=== PATIENT | male | born 1970 | race Caucasian/White ===

== ENCOUNTER 2018-02-15 17:11 | Inpatient (IN) | payer MEDICAID ==
[~2018-02-15] VITALS: Ht 185.4 cm; Wt 135.6 kg
--- NOTE | 2018-02-15 17:15 | NUR ---
BIB FAMILY C/O CHEST PAIN RADIATES TO L ARM X 1 WEEK. A/OX 4. BREATHING EVEN AND UNLABORED AT THIS TIME. NO SOB, NAD, VITALS STABLE. SAFETY AND COMFORT MEASURES IN PLACE. AWAITING MD ORDERS.
--- NOTE | 2018-02-15 17:32 | NUR ---
NEW IV STARTED ON LEFT HAND, 20G. BLOOD DRAWN AND SENT TO LAB.
--- NOTE | 2018-02-15 17:46 | NUR ---
BREAKER UP MACHINE OPERATOR AT BEDSIDE.
[2018-02-15] MEDS ORDERED: ASPIRIN 325 MG TABLET PO ONE (18:00)
[2018-02-15] MEDS ORDERED: NITROGLYCERIN PACKET 1 GM PACKET TD ONE (18:00)
[2018-02-15] MEDS ORDERED: NITROGLYCERIN PACKET 1 GM PACKET ONE (18:01)
[2018-02-15] MEDS ORDERED: ASPIRIN 325 MG TABLET ONE (18:01)
[2018-02-15 18:04] LABS: INR 0.88 (0.85-1.15)
[2018-02-15 18:07] LABS: TROPONIN I < 0.017 ng/mL (0.00-0.056)
[2018-02-15 18:32] LABS: CALCIUM, SERUM 8.9 mg/dL (8.5-10.1); CARBON DIOXIDE 26 mmol/L (21-32); CHLORIDE 102 mmol/L (98-107); GLUCOSE 146 mg/dL (74-106); SODIUM SERUM 137 mmol/L (136-145); UREA NITROGEN, BLOOD 14 mg/dL (7-18)
[2018-02-15 18:46] LABS: ALANINE AMINOTRANSFERASE 52 U/L (12-78); ALBUMIN 3.7 g/dL (3.4-5.0); ALKALINE PHOSPHATASE 84 U/L (46-116); ASPARTATE AMINOTRANSFERASE 19 U/L (15-37); B-TYPE NATRIURETIC PEPTIDE 15 PG/ML (0-125); BILIRUBIN,DIRECT 0.1 mg/dL (0.0-0.2); BILIRUBIN,TOTAL 0.4 mg/dL (0.2-1.0); TOTAL PROTEIN, SERUM 7.7 g/dL (6.4-8.2)
[2018-02-15 18:48] LABS: BASOPHILS % (AUTO) 0.5 % (0.0-2.0); HEMATOCRIT 44 % (39-51); HEMOGLOBIN 14.9 g/dL (13.5-17.5); LYMPHOCYTES # (AUTO) 2.8 /CMM (0.8-4.8); LYMPHOCYTES % (AUTO) 28.2 % (20.0-44.0); MEAN CORPUSCULAR HGB CONC 34 g/dl (31.0-36.0); MEAN CORPUSCULAR VOLUME 87 fL (80-96); MONOCYTES # (AUTO) 0.8 /CMM (0.1-1.30); MONOCYTES % (AUTO) 8.1 % (2.0-12.0); NEUTROPHILS # (AUTO) 5.9 /CMM (1.8-8.9); NEUTROPHILS % (AUTO) 59.2 % (43.0-81.0); PLATELET COUNT (AUTO) 209 /CMM (150-450); RED BLOOD CELL COUNT(AUTO) 5.09 MIL/uL (4.5-6.0); WHITE BLOOD COUNT (AUTO) 9.9 K/uL (4.3-11.0)
[2018-02-15] MEDS ORDERED: MORPHINE SULFATE INJ 2 MG/ML DISP.SYRIN IV ONE (19:30)
[2018-02-15] MEDS ORDERED: MORPHINE SULFATE INJ 4 MG/ML DISP.SYRIN ONE (19:34)
[2018-02-15 20:00] VITALS: BP 159/119
[2018-02-15] MEDS ORDERED: ACETAMINOPHEN 325 MG TABLET PO PRN (20:00)
[2018-02-15] MEDS ORDERED: MAG HYDROX/AL HYDROX/SIMETH 30 ML UDC PO PRN (20:00)
[2018-02-15] MEDS ORDERED: MAGNESIUM HYDROXIDE 30 ML UDC PO PRN (20:00)
[2018-02-15] MEDS ORDERED: ZOLPIDEM TARTRATE 5 MG TABLET PO PRN (20:00)
[2018-02-15] MEDS ORDERED: ONDANSETRON HCL/PF 4 MG/2 ML VIAL IVP PRN (20:00)
[2018-02-15] MEDS ORDERED: NITROGLYCERIN 0.4 MG/TAB BOTTLE SL PRN (20:00)
[2018-02-15] MEDS ORDERED: Z GUARD REMEDY 2 OZ OINT TP PRN (20:00)
[2018-02-15] MEDS ORDERED: HYDROCODONE/APAP 5/325MG 1 EACH TABLET PO PRN (20:00)
[2018-02-15] MEDS: MORPHINE SULFATE INJ 4 MG/ML DISP.SYRIN IV PRN (20:59)
[2018-02-15] MEDS ORDERED: ENOXAPARIN SODIUM 40 MG/0.4 ML DISP.SYRIN SQ SCH (21:00)
[2018-02-15] MEDS: METOPROLOL TARTRATE 25 MG TABLET PO SCH (21:00)
[2018-02-15] MEDS ORDERED: SIMVASTATIN 20 MG TABLET PO SCH (22:00)
--- NOTE | 2018-02-15 23:25 | NUR ---
PT IS ON CPAP 9 ON 40%. SP02 AT 99%. MEPILEX PUT ON FOR FACE PROTECTION. PT SAYS HE IS COMFORTABLE. WILL CONT TO MONITOR.
[2018-02-16] VITALS: BP 136/79
[2018-02-16] MEDS: MORPHINE SULFATE INJ 4 MG/ML DISP.SYRIN IV PRN ×2 (00:12→04:08)
--- NOTE | 2018-02-16 03:05 | NUR ---
PT IS REFUSING CPAP AT THIS TIME. PATIENT EXPLAINS THAT HIS HOME CPAP MASK FITS HIM PERFECTLY AND OUR HOSPITAL'S LARGE MASK IS SMALLER THAN HIS AND IT IS UNCOMFORTABLE. PT PUT ON NASAL CANNULA AT THIS TIME. RN NOTIFIED. WILL CONT TO MONITOR PT.
[2018-02-16 04:20] VITALS: BP 133/69
--- NOTE | 2018-02-16 06:19 | NUR ---
ELECTRICAL DESIGN TECHNICIAN NOTES AWAKE & RESPONSIVE. NOT IN ANY DISTRESS. NO SOB NOTED. DENIES ANY PAIN OR DISCOMFORT AT THIS TIME. ON TELE SR @ 76 WITH BBB WITH IV-HL PATENT & INTACT. MONITORED ACCORDINGLY. CALL LIGHT WITHIN REACH. BED IN LOWEST POSITION. SR UP X 2 FOR SAFETY. WILL ENDORSE TO NEXT SHIFT.
[2018-02-16 06:26] LABS: BASOPHILS # (AUTO) 0.1 /CMM (0.0-0.2); BASOPHILS % (AUTO) 0.5 % (0.0-2.0); EOSINOPHILS % (AUTO) 4.5 % (0.0-6.0); HEMATOCRIT 41 % (39-51); HEMOGLOBIN 13.9 g/dL (13.5-17.5); LYMPHOCYTES % (AUTO) 27.2 % (20.0-44.0); MEAN CORPUSCULAR HGB CONC 34 g/dl (31.0-36.0); MEAN CORPUSCULAR VOLUME 86 fL (80-96); MONOCYTES # (AUTO) 0.8 /CMM (0.1-1.30); MONOCYTES % (AUTO) 7.8 % (2.0-12.0); NEUTROPHILS # (AUTO) 6.6 /CMM (1.8-8.9); PLATELET COUNT (AUTO) 199 /CMM (150-450); RDW COEFFICIENT OF VARIATION 14.2 (11.5-15.0); RED BLOOD CELL COUNT(AUTO) 4.76 MIL/uL (4.5-6.0); WHITE BLOOD COUNT (AUTO) 10.9 K/uL (4.3-11.0)
[2018-02-16 06:44] LABS: CALCIUM, SERUM 8.5 mg/dL (8.5-10.1); MAGNESIUM 2.1 mg/dL (1.8-2.4); POTASSIUM 3.9 mmol/L (3.5-5.1)
[2018-02-16 06:53] LABS: THYROID STIMULATING HORMONE 3.071 uIU/mL (0.358-3.74)
--- NOTE | 2018-02-16 07:13 | NUR ---
MENTAL HEALTH COUNSELOR OPENING NOTE RECEIVED BEDSIDE SBAR REPORT ON THE PATIENT. PATIENT IS A/O X4, ANXIOUS. PATIENT IS IN BED, BED IS LOCKED IN LOWEST POSITION, SIDE RAILS UP X 2. PATIENT IS AMBULATORY AND ORIENTED TO OWN ABILITIES. CALL LIGHT WITHIN REACH. EXTERNAL MONITOR READING SR 77. EDUCATED TO CALL FOR ASSISTANCE USING THE CALL LIGHT AND VERBALIZED UNDERSTANDING. REPORTS PAIN RATING 5/10, BUT STATES DOES NOT WANT TO TAKE MEDICATION AT THIS TIME. CHEST RISING EQUABLY BILATERALLY. SPO2 97 RA. WILL CONTINUE TO ASSESS/MONITOR THROUGHOUT THE SHIFT.
[2018-02-16 08:00] VITALS: BP 131/72
[2018-02-16 09:00] VITALS: BP 131/72
[2018-02-16] MEDS: METOPROLOL TARTRATE 25 MG TABLET PO SCH (09:00)
[2018-02-16] MEDS ORDERED: ASPIRIN EC 81 MG TABLET.DR PO SCH (09:00)
--- NOTE | 2018-02-16 09:36 | NUR ---
Patient stated he does not want to take any medication orally. Medications are opened already. Will dispose opened aspirin and Lopressor per policy.
--- NOTE | 2018-02-16 10:06 | NUR ---
Patient refused CT angiogram. Patient requesting a new integrity director. Patient is asking for Morphine and refuses to take Hollins instead. Called Dr. Meadows Awaiting for a call back.
--- NOTE | 2018-02-16 10:07 | NUR ---
Sarbjit from Radiology spoke to the patient at the bedside. Patient refused the CT angiogram stating that he will only undergo the test if it is ordered by different physician. Awaiting a call from Dr. Meadows.
--- NOTE | 2018-02-16 10:50 | NUR ---
Received telephone order from Dr Blum to give Morphine 2 mg IV one now. read back and verified. Will follow order as received.
[2018-02-16] MEDS ORDERED: MORPHINE SULFATE INJ 4 MG/ML DISP.SYRIN IV PRN (10:52)
--- NOTE | 2018-02-16 12:12 | NUR ---
AMA NOTE RAFAELA FROM RADIOLOGY WENT TO PATIENT'S ROOM TO DISCUSS UPCOMING CT SCAN. PATIENT STATED HE DECIDED TO LEAVE THE HOSPITAL AND GO TO [facility] FOR FURTHER OBSERVATION. RAFAELA CALLED THE RN. RN WENT TO THE ROOM AND SAW THE PATIENT DRESSED IN OWN CLOTHES. PATIENT STATED " MY BROTHER IS ON HIS WAY. HE IS GOING TO PICK ME UP TO GO TO [facility]. I AM GOING TO LEAVE NOW". RN EDUCATED THE PATIENT ON RISKS ASSOCIATED WITH LEAVING THE HOSPITAL AGAINST MEDICAL ADVICE. PATIENT VERBALIZED UNDERSTANDING. PATIENT AGREED TO SIGN THE AMA FORM, BUT REFUSED TO SIGN THE BELONGINGS LIST AND INSTRUCTIONS. PATIENT REFUSED TO TALE TEST/IMAGING RESULT AND STATED THAT IF [facility] NEEDS IT THEY WILL CONTACT [facility]. IV CATHETER WAS REMOVED BY THE RN WITH THE CATHETER TIP INTACT. PATIENT TOLERATED PROCEDURE WELL. OCLUSIVE DRESSING APPLIED. DENIES PAIN/DISCOMFORT. LEFT THE UNIT IN STABLE CONDITION.
--- NOTE | 2018-02-16 12:29 | NUR ---
patient left the unit in stable condition. AMA form signed. Risks discussed.
== END 2018-02-16 12:23 | disposition left against medical advice (07) | DRG 203 ==
LOC: ER 17:15 → TELE 19:31 → MED 02-16 08:47
DX: M94.0 Chondrocostal junction syndrome [Tietze] (principal); E88.81 Metabolic syndrome and other insulin resistance; I11.0 Hypertensive heart disease with heart failure; I50.9 Heart failure, unspecified; I25.10 Atherosclerotic heart disease of native coronary artery without angina pectoris; I25.2 Old myocardial infarction; F17.200 Nicotine dependence, unspecified, uncomplicated; E66.01 Morbid (severe) obesity due to excess calories; R73.9 Hyperglycemia, unspecified; G47.33 Obstructive sleep apnea (adult) (pediatric); N40.0 Benign prostatic hyperplasia without lower urinary tract symptoms; Z68.39 Body mass index [BMI] 39.0-39.9, adult; K57.30 Diverticulosis of large intestine without perforation or abscess without bleeding
CPT/HCPCS: 36415; 71045-TC; 80048-TC; 80061-TC; 80076-TC; 83735-TC; 83880; 84100-TC; 84443-TC; 84484-TC; 85025-TC; 85730-TC; 87081-TC; 93307-TC; A4606; J1650; J2270; J7030; Z7610

== ENCOUNTER 2020-12-03 19:28 | Emergency (ER) | payer MEDICAID ==
[~2020-12-03] VITALS: Ht 182.9 cm; Wt 115.7 kg
--- NOTE | 2020-12-03 19:32 | NUR ---
PT BIBSELF C/O CHEST PAIN X1HR REGISTERED NURSE MATERNAL CHILD. PT STATES HE WAS SEEN AT HOSPITAL 2 DAYS AGO FOR SIMILIAR COMPLAINT, TOLD TO BE ADMITTED AND LEFT AMA. PT STATES "I FORGOT THE NAME OF THE HOSPITAL". PT TOOK 162MG ASPRIN PO AND NITRO SL REGISTERED NURSE MATERNAL CHILD WITH MINIMAL RELIEF. PT AAOX4. RESPIRATIONS EVEN AND UNLABORED. AMBULATORY WITH STEADY GAIT. NO ACUTE DISTRESS NOTED AT THIS TIME. PLACED IN GOWN AND ON CONTINOUS STEEL WHEEL ENGRAVER AND PULSE OX, WILL CONTINUE TO MONITOR
--- NOTE | 2020-12-03 19:45 | NUR ---
MIA INITIATED RAC MataG. LABS DRAWN FROM SITE. CALLED LAB FOR BARREL LAPPER
--- NOTE | 2020-12-03 19:53 | NUR ---
RADIOLOGY AT BEDSIDE FOR CXR
[2020-12-03 20:00] LABS: BASOPHILS # (AUTO) 0.1 /CMM (0.0-0.2); BASOPHILS % (AUTO) 0.8 % (0.0-2.0); EOSINOPHILS % (AUTO) 2.6 % (0.0-6.0); HEMATOCRIT 46 % (39-51); HEMOGLOBIN 15.4 g/dL (13.5-17.5); LYMPHOCYTES # (AUTO) 2.9 /CMM (0.8-4.8); LYMPHOCYTES % (AUTO) 28.4 % (20.0-44.0); MEAN CORPUSCULAR HGB CONC 34 g/dl (31.0-36.0); MEAN CORPUSCULAR VOLUME 87 fL (80-96); MONOCYTES # (AUTO) 0.9 /CMM (0.1-1.30); MONOCYTES % (AUTO) 8.2 % (2.0-12.0); NEUTROPHILS # (AUTO) 6.2 /CMM (1.8-8.9); PLATELET COUNT (AUTO) 262 /CMM (150-450); RED BLOOD CELL COUNT(AUTO) 5.22 MIL/uL (4.5-6.0); WHITE BLOOD COUNT (AUTO) 10.3 K/uL (4.3-11.0)
[2020-12-03] MEDS ORDERED: ASPIRIN 81 MG TAB.CHEW ONE (20:05)
[2020-12-03] MEDS ORDERED: NITROGLYCERIN 0.4 MG/TAB BOTTLE ONE (20:05)
[2020-12-03] MEDS: ASPIRIN 81 MG TAB.CHEW PO ONE (20:08)
[2020-12-03] MEDS: NITROGLYCERIN 0.4 MG/TAB BOTTLE SL ONE (20:09)
[2020-12-03 20:10] VITALS: BP 156/82
--- NOTE | 2020-12-03 20:15 | NUR ---
SECOND NITRO SL GIVEN
[2020-12-03 20:21] LABS: CALCIUM, SERUM 8.5 mg/dL (8.5-10.1); CARBON DIOXIDE 26 mmol/L (21-32); CHLORIDE 104 mmol/L (98-107); CREATININE 1.2 mg/dL (0.6-1.3); GLUCOSE 102 mg/dL (74-106); POTASSIUM 3.8 mmol/L (3.5-5.1); SODIUM SERUM 140 mmol/L (136-145); UREA NITROGEN, BLOOD 10 mg/dL (7-18)
--- NOTE | 2020-12-03 20:21 | NUR ---
THIRD NITRO SL GIVEN, VITALS STABLE, HR 81, 128/51
[2020-12-03] MEDS ORDERED: ACETAMINOPHEN 325 MG TABLET PO PRN (20:30)
[2020-12-03] MEDS ORDERED: MORPHINE SULFATE INJ 2 MG/ML DISP.SYRIN IV PRN (20:30)
[2020-12-03] MEDS ORDERED: MAG HYDROX/AL HYDROX/SIMETH 30 ML UDC PO PRN (20:30)
[2020-12-03] MEDS ORDERED: DOCUSATE SODIUM 100 MG CAPSULE PO PRN (20:30)
[2020-12-03] MEDS ORDERED: NITROGLYCERIN 0.4 MG/TAB BOTTLE SL PRN (20:30)
[2020-12-03] MEDS ORDERED: ONDANSETRON HCL/PF 4 MG/2 ML VIAL IVP PRN (20:30)
[2020-12-03 20:37] LABS: ALANINE AMINOTRANSFERASE 26 U/L (12-78); ALBUMIN 3.5 g/dL (3.4-5.0); ALKALINE PHOSPHATASE 87 U/L (46-116); ASPARTATE AMINOTRANSFERASE 13 U/L (15-37); B-TYPE NATRIURETIC PEPTIDE 24 PG/ML (0-125); BILIRUBIN,DIRECT 0.1 mg/dL (0.0-0.2); BILIRUBIN,TOTAL 0.4 mg/dL (0.2-1.0); TOTAL PROTEIN, SERUM 7.5 g/dL (6.4-8.2)
--- NOTE | 2020-12-03 20:43 | NUR ---
[facility] CALLED FOR [facility] TRANSFER SPOKE TO ART RN. INFO PROVIDED REQUESTED.
--- NOTE | 2020-12-03 20:46 | NUR ---
FACESHEET AND EKG FAXED TO [facility] REQUESTED.
--- NOTE | 2020-12-03 20:56 | NUR ---
PT AAOX4. STATING HE DOES NOT WANT TO BE TRANSFERED. MD AT BEDSIDE SPEAKING TO PT REGARDING HOW IMPORTANT IT IS FOR HIM TO BE TRANSFERED. PT IS AWARE BUT STATING HE DOES NOT WANT TO BE TRANSFERED. I DID TELL THE PATIENT THAT HE WILL BE GOING TO [facility], PT TOOK OFF BP CUFF AND PULSE OX. THEN STATED "TAKE OFF THIS IV, I WILL DRIVE TO THE MEDICAL [facility] MYSELF!" MD AWARE.
--- NOTE | 2020-12-03 21:16 | NUR ---
PT PROVIDED WITH COPIES OF EKG AND BLOOD WORK.
--- NOTE | 2020-12-03 21:16 | NUR ---
Patient does not wish to proceed with medical care recommended by Dr. Zimmerman. Patient given information related to possible complications, up to and including , which could occur as a result of leaving the hospital at this time. Patient verbalizes understanding of risks involved due to leaving against medical advice. Patient refused to sign AMA form. Pt ambulated to his car in the parking lot and drove off. Pt was adviced not to drive.
[2020-12-04] MEDS ORDERED: ENOXAPARIN SODIUM 40 MG/0.4 ML DISP.SYRIN SQ SCH (09:00)
[2020-12-04] MEDS ORDERED: ASPIRIN 81 MG TAB.CHEW PO SCH (09:00)
== END 2020-12-03 21:30 | disposition left against medical advice (07) ==
LOC: ER 19:35
DX: R07.9 Chest pain, unspecified (principal); I25.9 Chronic ischemic heart disease, unspecified; Z91.19 Patient's noncompliance with other medical treatment and regimen; R94.31 Abnormal electrocardiogram [ECG] [EKG]; I45.10 Unspecified right bundle-branch block; Z79.82 Long term (current) use of aspirin; I10 Essential (primary) hypertension; E11.9 Type 2 diabetes mellitus without complications; I25.2 Old myocardial infarction; Z20.822 Contact with and (suspected) exposure to COVID-19
CPT/HCPCS: 36415; 71045; 80048; 80076; 83880; 84484; 85025; 85378; 85730; 87081; 87426; 93005 ×2; 99291; C9803